=== PATIENT | male | born 1970 | race Hispanic/Latino ===

== ENCOUNTER 2017-05-16 14:43 | Emergency (ER) | payer SELFPAY ==
[2017-05-16 14:54] VITALS: BP 143/94
[2017-05-16 15:35] LABS: Hematocrit 48.6 % (35.5-45.6); Hemoglobin 15.9 gm/dl (11.8-15.2); Mean Corpuscular HGB Conc 33 % (32-34); Mean Corpuscular Hemoglobin 29 pg (28-32); Mean Corpuscular Volume 87 fl (84-94); Platelet Count 247 K/mm3 (140-440); Red Blood Count 5.57 M/mm3 (3.65-5.03); Red Cell Distribution Width 13.5 % (13.2-15.2)
[2017-05-16 15:38] LABS: BUN/Creatinine Ratio 11; Blood Urea Nitrogen 8 mg/dL (9-20); Hemolysis Index 37
--- NOTE | 2017-05-16 17:15 | XRay Report ---
FINAL REPORT EXAM: XR FOOT BILAT 2V HISTORY: foot pain bilaterally TECHNIQUE: AP, lateral, and oblique portable views of each foot PRIORS: None. FINDINGS: There is no evidence for acute fracture or dislocation. No soft tissue swelling or radiopaque foreign bodies are seen. Bony mineralization is normal. Joint spaces are maintained. Spurring off the plantar aspect of each calcaneus is seen. IMPRESSION: No acute soft tissue or bony abnormality noted.
== END 2017-05-16 20:20 | disposition left against medical advice (07) ==
LOC: ED 14:43
DX: Z53.21 Procedure and treatment not carried out due to patient leaving prior to being seen by health care provider (principal)
CPT/HCPCS: 36415; 73620; 80048; 82550; 82962; 83735; 85027; 93970; G0480; 80320

== ENCOUNTER 2018-12-27 18:04 | Emergency (ER) | payer SELFPAY ==
[2018-12-27] MEDS ORDERED: ASPIRIN PO ONE (18:28)
--- NOTE | 2018-12-27 18:55 | XRay Report ---
CHEST 1 VIEW 12/27/2018 6:33 PM INDICATION / CLINICAL INFORMATION: Chest Pain. COMPARISON: None available. FINDINGS: SUPPORT DEVICES: None. HEART / MEDIASTINUM: No significant abnormality. LUNGS / PLEURA: No significant pulmonary or pleural abnormality. No pneumothorax. ADDITIONAL FINDINGS: No significant additional findings. IMPRESSION: 1. No acute findings. Signer Name: Herman Brower MD Signed: 12/27/2018 6:51 PM Workstation Name: [id number]
[2018-12-27 19:05] LABS: BUN/Creatinine Ratio 9; Blood Urea Nitrogen 8 mg/dL (9-20); Calcium 8.2 mg/dL (8.4-10.2); Hemolysis Index 8
[2018-12-27 19:20] LABS: Basophils % (Auto) 0.5 % (0.0-1.8); Eosinophils # (Auto) 0.1 K/mm3 (0.0-0.4); Eosinophils % (Auto) 2.2 % (0.0-4.3); Hematocrit 44.1 % (35.5-45.6); Hemoglobin 14.9 gm/dl (11.8-15.2); Lymphocytes # (Auto) 2.6 K/mm3 (1.2-5.4); Lymphocytes % (Auto) 43.7 % (13.4-35.0); Mean Corpuscular HGB Conc 34 % (32-34); Mean Corpuscular Volume 90 fl (84-94); Monocytes # (Auto) 0.3 K/mm3 (0.0-0.8); Monocytes % (Auto) 5.2 % (0.0-7.3); Platelet Count 208 K/mm3 (140-440); Red Blood Count 4.89 M/mm3 (3.65-5.03); Red Cell Distribution Width 14.1 % (13.2-15.2)
--- NOTE | 2018-12-27 19:31 | Event Note ---
Date: 12/27/18 Medical screening examination: 48-year-old gentleman, initially presents with "cut me loose." On further questioning, he states as he was drinking earlier on today, and developed some chest discomfort. He states that it is chronic. He appears quite comfortable in his stretcher at this time. Screening laboratory studies ordered. ekg xr chest ordered Patient states he is pain-free at this time. Vital Signs 12/27/18 18:23 Temperature 97.6 F Pulse Rate 76 Respiratory 16 Rate Blood Pressure 133/78 O2 Sat by Pulse 98 Oximetry
[2018-12-27 20:24] VITALS: BP 113/72
--- NOTE | 2018-12-28 00:12 | Emergency Department Report ---
ED Chest Pain HPI - General Chief Complaint: Chest Pain Stated Complaint: CHEST PAIN Time Seen by Provider: 12/27/18 20:08 Source: EMS Mode of arrival: Stretcher Limitations: No Limitations - History of Present Illness Initial Comments: Mr. Sigala is a 48-year-old male with history of alcohol abuse presents with chest pain for several months. Chest pain is heavy left-sided. Has become more severe and persistent lately. Currently chest pain-free now. Family history of father with [place]. He does not have a primary care physician. Unknown if he has further cardiovascular risk factors such as hypertension and diabetes. He does have a history of tobacco abuse. Pain does not appear to be associated with breathing or exertion. Pain today occurred at rest. MD Complaint: chest pain -: Gradual, month(s) (several) Onset: during rest Pain Location: left chest Severity: mild Severity scale (0 -10): 0 Quality: heaviness Consistency: now resolved Improves With: nothing Worsens With: nothing Treatments Prior to Arrival: none - Related Data Previous Rx's Medication Instructions Recorded Last Taken Type Sulfamethoxazole/Trimethoprim 1 each PO BID #14 tablet 06/01/14 Unknown Rx [Bactrim Ds] cephALEXin [Keflex] 500 mg PO Q6H #28 capsule 06/01/14 Unknown Rx traMADol [Ultram] 50 mg PO Q6HR PRN #14 tablet 06/01/14 Unknown Rx Acetaminophen/Codeine [Tylenol #3] 1 tab PO Q6H PRN #12 tab 09/28/14 Unknown Rx Ibuprofen [Motrin 800 MG tab] 800 mg PO Q8H PRN #30 tablet 09/28/14 Unknown Rx Sulfamethoxazole/Trimethoprim 1 each PO Q12H #20 tablet 09/28/14 Unknown Rx [Bactrim Ds] cephALEXin [Keflex] 500 mg PO Q6H #40 capsule 09/28/14 Unknown Rx Allergies Allergy/AdvReac Type Severity Reaction Status Date / Time No Known Allergies Allergy Verified 05/16/17 14:46 Heart Score - HEART Score History: Slightly suspicious EKG: Non-specific Age: 45-65 Risk factors: 1-2 risk factors Troponin: < normal limit HEART Score: 3 ED Review of Systems ROS: Stated complaint: CHEST PAIN Other details as noted in HPI Comment: All other systems reviewed and negative Respiratory: denies: cough, shortness of breath Cardiovascular: chest pain ED Past Medical Hx - Past Medical History Previous Medical History?: Yes Hx Hypertension: Yes Hx Psychiatric Treatment: Yes (etoh abuse) Additional medical history: Irregular HR, Enlarged heart, hep c, etoh abuse pt states " On fridays i buy a 1/2 gallon of liquor and it last for the weekend" - Social History Smoking Status: Current Every Day Smoker Substance Use Type: Alcohol - Medications Home Medications: Home Medications Medication Instructions Recorded Confirmed Last Taken Type Sulfamethoxazole/Trimethoprim 1 each PO BID #14 tablet 06/01/14 Unknown Rx [Bactrim Ds] cephALEXin [Keflex] 500 mg PO Q6H #28 capsule 06/01/14 Unknown Rx traMADol [Ultram] 50 mg PO Q6HR PRN #14 tablet 06/01/14 Unknown Rx Acetaminophen/Codeine [Tylenol #3] 1 tab PO Q6H PRN #12 tab 09/28/14 Unknown Rx Ibuprofen [Motrin 800 MG tab] 800 mg PO Q8H PRN #30 tablet 09/28/14 Unknown Rx Sulfamethoxazole/Trimethoprim 1 each PO Q12H #20 tablet 09/28/14 Unknown Rx [Bactrim Ds] cephALEXin [Keflex] 500 mg PO Q6H #40 capsule 09/28/14 Unknown Rx ED Physical Exam - General Limitations: No Limitations General appearance: alert, in no apparent distress - Head Head exam: Present: atraumatic, normocephalic - Eye Eye exam: Present: normal appearance - ENT ENT exam: Present: mucous membranes moist - Neck Neck exam: Present: normal inspection, full ROM - Respiratory Respiratory exam: Present: normal lung sounds bilaterally. Absent: respiratory distress, wheezes, rales, rhonchi - Cardiovascular Cardiovascular Exam: Present: regular rate, normal rhythm, normal heart sounds. Absent: systolic murmur, diastolic murmur, rubs, gallop - GI/Abdominal GI/Abdominal exam: Present: soft, normal bowel sounds. Absent: distended, tenderness, guarding, rebound - Rectal Rectal exam: Present: deferred - Extremities Exam Extremities exam: Present: normal inspection - Back Exam Back exam: Present: normal inspection - Neurological Exam Neurological exam: Present: alert, oriented X3 - Psychiatric Psychiatric exam: Present: normal affect, normal mood - Skin Skin exam: Present: warm, dry, intact, normal color. Absent: rash ED Course Vital Signs 12/27/18 12/27/18 18:23 19:20 Temperature 97.6 F 97.9 F Pulse Rate 76 84 Respiratory 16 14 Rate Blood Pressure 133/78 Blood Pressure 113/72 [Right] O2 Sat by Pulse 98 97 Oximetry RAMON score - Ramon Score Age > 65: (0) No Aspirin use within the Past 7 Days: (0) No 3 or more CAD Risk Factors: (0) No 2 or more Angina events in past 24 hrs: (0) No Known CAD with more than 50% Stenosis: (0) No Elevated Cardiac Markers: (0) No ST Deviation Greater than 0.5mm: (0) No RAMON Score: 0 ED Medical Decision Making - Lab Data Result diagrams: 12/27/18 18:35 12/27/18 18:35 Laboratory Results - last 24 hr 12/27/18 12/27/18 18:35 18:35 WBC 6.1 RBC 4.89 Hgb 14.9 Hct 44.1 MCV 90 MCH 30 MCHC 34 RDW 14.1 Plt Count 208 Lymph % (Auto) 43.7 H [place] % (Auto) 5.2 Eos % (Auto) 2.2 Baso % (Auto) 0.5 Lymph # 2.6 [place] # 0.3 Eos # 0.1 Baso # 0.0 Seg Neutrophils % 48.4 Seg Neutrophils # 2.9 Sodium 142 Potassium 3.8 Chloride 102.1 Carbon Dioxide 22 Anion Gap 22 BUN 8 L Creatinine 0.9 Estimated GFR > 60 BUN/Creatinine Ratio 9 Glucose 101 H Calcium 8.2 L Troponin T < 0.010 - Radiology Data Radiology results: report reviewed AP portable chest no acute process - Medical Decision Making Mr. Sigala is a 48-year-old gentleman who presents with recurrent intermittent chest pain over several months. Heart score is 3. With shared decision-making including his daughter in our conversation, Mr. Sigala decided to have outpatient cardiology evaluation as opposed to inpatient admission which was offered to him. He understood that I am concerned for cardiac cause such as coronary disease leading to angina. No indication of pulmonary embolism, esophageal rupture, pneumothorax, aortic dissection on today's presentation. He is currently chest pain-free. I felt that outpatient cardiology evaluation is appropriate. I have arranged for outpatient referral with our cardiology group. He also was given name of a senior solutions workflow consultant. His daughter reassured me that he will follow up cardiology this week. Mr. Sigala and his daughter both verbalized understand that there is a present although small risk of cardiac event if he does not pursue urgent cardiology evaluation. I recommended tobacco cessation. Critical care attestation.: If time is entered above; I have spent that time in minutes in the direct care of this critically ill patient, excluding procedure time. ED Disposition Clinical Impression: Chest pain Disposition: DC-01 TO HOME OR SELFCARE Is pt being admited?: No Does the pt Need Aspirin: No Condition: Stable Instructions: Chest Pain (ED) Referrals: SAIRA LAWSON MD [Staff Physician] - [facility] Forms: Work/School Release Form(ED)
== END 2018-12-27 20:29 | disposition home or self-care (01) ==
LOC: ED 18:04
DX: R07.89 Other chest pain (principal); I10 Essential (primary) hypertension; F17.200 Nicotine dependence, unspecified, uncomplicated; Z79.899 Other long term (current) drug therapy
CPT/HCPCS: 36415; 71045; 80048; 84484; 85025; 93005; 93010

== ENCOUNTER 2019-04-11 07:54 | Emergency (ER) | payer OTHER ==
[2019-04-11 08:02] VITALS: BP 183/104
[2019-04-11] MEDS ORDERED: KETOROLAC 60 MG/2 ML INJ IM ONE (08:22)
[2019-04-11] MEDS ORDERED: ONDANSETRON 4 MG ODT TAB PO ONE (08:22)
--- NOTE | 2019-04-11 08:59 | Cat Scan Report ---
. CT ABDOMEN AND PELVIS WITHOUT CONTRAST HISTORY: right flank pain. COMPARISON: None. TECHNIQUE: CT images of the abdomen and pelvis were obtained without administration of intravenous co ntrast. All CT scans at this location are performed using CT dose reduction for ALARA by means of au tomated exposure control. FINDINGS: Lungs/bones: The lung bases are clear. There are degenerative changes in the spine and pelvis with n o acute osseous abnormality. Left hip osteonecrosis is also present involving approximately 50% of th e articular surface. No collapse or significant secondary DJD. Abdomen/pelvis: There is a 3 mm stone in the distal right ureter with mild left-sided hydronephrosis , periureteral stranding, and perinephric stranding. An additional nonobstructive calyceal stone is s een in the mid to upper pole measuring 3 mm. The kidneys otherwise appear unremarkable. There is mild hepatic steatosis. The liver is otherwise unremarkable. The gallbladder, spleen, pancre as, adrenals, and proximal GI tract appear unremarkable. Urinary bladder and prostate are unremarkable with no pelvic free fluid. There is mild colonic divert iculosis with no acute inflammatory change identified. The terminal ileum and appendix are normal. IMPRESSION: 1. 3 mm stone in the distal right ureter with mild hydronephrosis. 2. Additional incidental findings as above. Signer Name: Jamie Finn MD Signed: 04/11/2019 8:55 AM Workstation Name: [id number]
[2019-04-11 09:01] LABS: Basophils % (Auto) 0.8 % (0.0-1.8); Eosinophils # (Auto) 0.1 K/mm3 (0.0-0.4); Eosinophils % (Auto) 1.8 % (0.0-4.3); Hematocrit 44.6 % (35.5-45.6); Lymphocytes # (Auto) 1.8 K/mm3 (1.2-5.4); Mean Corpuscular HGB Conc 34 % (32-34); Mean Corpuscular Volume 89 fl (84-94); Monocytes # (Auto) 0.5 K/mm3 (0.0-0.8); Monocytes % (Auto) 10.3 % (0.0-7.3); Platelet Count 194 K/mm3 (140-440); Red Blood Count 4.99 M/mm3 (3.65-5.03)
[2019-04-11 09:09] LABS: BUN/Creatinine Ratio 11; Blood Urea Nitrogen 8 mg/dL (9-20); Hemolysis Index 19
[2019-04-11 09:16] LABS: Bilirubin,Urine NEG (Negative); Blood,Urine LG (Negative); Calcium Oxalate Crystals,Urine 2+; Color,Urine Amber (Yellow); Mucus,Urine 2+ /HPF
[2019-04-11 09:18] LABS: RBC,Urine > 182.0 /HPF (0.0-6.0)
--- NOTE | 2019-04-11 09:45 | Emergency Department Report ---
ED General Adult HPI - General Chief complaint: Back Pain/Injury Stated complaint: BACK/TESTICLE PAIN Time Seen by Provider: 04/11/19 08:18 Source: patient Mode of arrival: Ambulatory Limitations: No Limitations - History of Present Illness Initial comments: Patient is a 48-year-old male with a past medical history of hypertension EtOH abuse and remote history of kidney stones who is presenting with right flank pain. Patient states that the pain started yesterday afternoon. Pain is worse with 10 out of 10 but is 5 out of 10 in severity at this moment. Patient states is a stabbing pain is in the right flank that does radiate into his right groin. Patient states there is no pain with palpation of his testicles or swelling. Patient denies hematuria or dysuria or penile discharge. Patient states he has some mild nausea but no vomiting. Patient denies fevers chills. Severity scale (0 -10): 5 - Related Data Previous Rx's Medication Instructions Recorded Last Taken Type Sulfamethoxazole/Trimethoprim 1 each PO BID #14 tablet 06/01/14 Unknown Rx [Bactrim Ds] cephALEXin [Keflex] 500 mg PO Q6H #28 capsule 06/01/14 Unknown Rx traMADoL [Ultram] 50 mg PO Q6HR PRN #14 tablet 06/01/14 Unknown Rx Acetaminophen/Codeine [Tylenol #3] 1 tab PO Q6H PRN #12 tab 09/28/14 Unknown Rx Ibuprofen [Motrin 800 MG tab] 800 mg PO Q8H PRN #30 tablet 09/28/14 Unknown Rx Sulfamethoxazole/Trimethoprim 1 each PO Q12H #20 tablet 09/28/14 Unknown Rx [Bactrim Ds] cephALEXin [Keflex] 500 mg PO Q6H #40 capsule 09/28/14 Unknown Rx Ciprofloxacin HCl [Ciprofloxacin 500 mg PO Q12HR #14 tab 04/11/19 Unknown Rx TAB] Ibuprofen [Motrin 800 MG tab] 800 mg PO Q8HR PRN #10 tablet 04/11/19 Unknown Rx Ondansetron [Zofran Odt] 4 mg PO Q8HR #10 tab.rapdis 04/11/19 Unknown Rx Tamsulosin [Flomax] 0.4 mg PO QDAY #7 cap 04/11/19 Unknown Rx traMADoL [Ultram] 50 mg PO Q6HR PRN #12 tablet 04/11/19 Unknown Rx Allergies Allergy/AdvReac Type Severity Reaction Status Date / Time No Known Allergies Allergy Verified 05/16/17 14:46 ED Review of Systems ROS: Stated complaint: BACK/TESTICLE PAIN Other details as noted in HPI Comment: All other systems reviewed and negative ED Past Medical Hx - Past Medical History Previous Medical History?: Yes Hx Hypertension: Yes Hx Psychiatric Treatment: Yes (etoh abuse) Additional medical history: Irregular HR, Enlarged heart, hep c, etoh abuse pt states " On fridays i buy a 1/2 gallon of liquor and it last for the weekend" - Social History Smoking Status: Current Every Day Smoker Substance Use Type: Alcohol, Marijuana - Medications Home Medications: Home Medications Medication Instructions Recorded Confirmed Last Taken Type Sulfamethoxazole/Trimethoprim 1 each PO BID #14 tablet 06/01/14 Unknown Rx [Bactrim Ds] cephALEXin [Keflex] 500 mg PO Q6H #28 capsule 06/01/14 Unknown Rx traMADoL [Ultram] 50 mg PO Q6HR PRN #14 tablet 06/01/14 Unknown Rx Acetaminophen/Codeine [Tylenol #3] 1 tab PO Q6H PRN #12 tab 09/28/14 Unknown Rx Ibuprofen [Motrin 800 MG tab] 800 mg PO Q8H PRN #30 tablet 09/28/14 Unknown Rx Sulfamethoxazole/Trimethoprim 1 each PO Q12H #20 tablet 09/28/14 Unknown Rx [Bactrim Ds] cephALEXin [Keflex] 500 mg PO Q6H #40 capsule 09/28/14 Unknown Rx Ciprofloxacin HCl [Ciprofloxacin 500 mg PO Q12HR #14 tab 04/11/19 Unknown Rx TAB] Ibuprofen [Motrin 800 MG tab] 800 mg PO Q8HR PRN #10 tablet 04/11/19 Unknown Rx Ondansetron [Zofran Odt] 4 mg PO Q8HR #10 tab.rapdis 04/11/19 Unknown Rx Tamsulosin [Flomax] 0.4 mg PO QDAY #7 cap 04/11/19 Unknown Rx traMADoL [Ultram] 50 mg PO Q6HR PRN #12 tablet 04/11/19 Unknown Rx ED Physical Exam - General Limitations: No Limitations General appearance: alert, in no apparent distress - Head Head exam: Present: atraumatic, normocephalic - Eye Eye exam: Present: normal appearance - ENT ENT exam: Present: mucous membranes moist - Neck Neck exam: Present: normal inspection - Respiratory Respiratory exam: Present: normal lung sounds bilaterally. Absent: respiratory distress, wheezes, rales, rhonchi, stridor - Cardiovascular Cardiovascular Exam: Present: regular rate, normal rhythm, normal heart sounds. Absent: systolic murmur, diastolic murmur, rubs, gallop - GI/Abdominal GI/Abdominal exam: Present: soft, normal bowel sounds. Absent: distended, tenderness, guarding, rebound - Rectal Rectal exam: Present: deferred - Extremities Exam Extremities exam: Present: normal inspection - Back Exam Back exam: Present: normal inspection, CVA tenderness (R) - Neurological Exam Neurological exam: Present: alert, oriented X3 - Psychiatric Psychiatric exam: Present: normal affect, normal mood - Skin Skin exam: Present: warm, dry, intact, normal color. Absent: rash ED Course Vital Signs 04/11/19 08:00 Temperature 97.7 F Pulse Rate 92 H Respiratory 20 Rate Blood Pressure 183/104 O2 Sat by Pulse 97 Oximetry ED Medical Decision Making - Lab Data Result diagrams: 04/11/19 08:41 04/11/19 08:41 - Radiology Data CT ABDOMEN AND PELVIS WITHOUT CONTRAST HISTORY: right flank pain. COMPARISON: None. TECHNIQUE: CT images of the abdomen and pelvis were obtained without administ ration of intravenous contrast. All CT scans at this location are performed using CT dose reduction for ALARA by means of automated exposure control. FINDINGS: Lungs/bones: The lung bases are clear. There are degenerative changes in the spine and pelvis with no acute osseous abnormality. Left hip osteonecrosis is also present involving approximately 50% of the articular surface. No collapse or significant secondary DJD. Abdomen/pelvis: There is a 3 mm stone in the distal right ureter with mild left- sided hydronephrosis, periureteral stranding, and perinephric stranding. An additional nonobstructive calyceal stone is seen in the mid to upper pole measuring 3 mm. The kidneys otherwise appear unremarkable. There is mild hepatic steatosis. The liver is otherwise unremarkable. The gallbladder, spleen, pancreas, adrenals, and proximal GI tract appear unremarkable. Urinary bladder and prostate are unremarkable with no pelvic free fluid. There is mild colonic diverticulosis with no acute inflammatory change identified. The terminal ileum and appendix are normal. IMPRESSION: 1. 3 mm stone in the distal right ureter with mild hydronephrosis. 2. Additional incidental findings as above. - Medical Decision Making Patient was given Toradol and Zofran to control his symptoms. CT does confirm that the patient has a right obstructive uropathy in the distal ureter. There is mild hydronephrosis. Patient will be discharged home with pain medications as well as follow-up with urology. Critical care attestation.: If time is entered above; I have spent that time in minutes in the direct care of this critically ill patient, excluding procedure time. ED Disposition Clinical Impression: Hydronephrosis Qualifiers: Hydronephrosis type: with ureteral calculous obstruction Qualified Code(s): N13.2 - Hydronephrosis with renal and ureteral calculous obstruction Disposition: TO HOME OR SELFCARE Is pt being admited?: No Does the pt Need Aspirin: No Condition: Stable Instructions: Kidney Stones (ED), How to Strain Your Urine (ED) Referrals: BONILLA BRENNAN MD [Staff Physician] - 3-5 Days Time of Disposition: 09:44
== END 2019-04-11 09:55 | disposition home or self-care (01) ==
LOC: ED 07:54
DX: N13.2 Hydronephrosis with renal and ureteral calculous obstruction (principal); I10 Essential (primary) hypertension; F17.200 Nicotine dependence, unspecified, uncomplicated; F12.10 Cannabis abuse, uncomplicated
CPT/HCPCS: 36415; 74176; 80048; 81001; 85025; 87086; 96372; 99284; J1885; Q0162

== ENCOUNTER 2020-03-07 14:53 | Emergency (ER) | payer OTHER ==
--- NOTE | 2020-03-07 16:13 | Emergency Department Report ---
ED General Adult HPI - General Chief complaint: Syncope Stated complaint: SYNCOPE PUI?: No Time Seen by Provider: 03/07/20 15:42 Source: patient, EMS ( EMS documentation not available at time of chart dictation ), RN notes reviewed, old records reviewed Mode of arrival: Stretcher Limitations: No Limitations - History of Present Illness Initial comments: The patient was evaluated in the emergency department for symptoms described in the history of present illness. He/she was evaluated in the context of the global COVID-19 pandemic, which necessitated consideration that the patient might be at risk for infection with the virus that causes COVID-19. Institutional protocols and algorithms that pertain to the evaluation of patients at risk for COVID-19 are in a state of rapid change based on information released by regulatory bodies including the CDC and federal and state organizations. These policies and algorithms were followed during the patient's care in the emergency department. Please note that these policies, procedures and recommendations changed on a rapid basis. This patient is a 49-year-old obese gentleman. He is not known to myself previously. He has a primary care doctor, but he cannot recall their name. He has a history of morbid obesity, diabetes and hypertension, as well as chronic alcohol consumption. Patient presents today with a primary complaint of temporary loss of consciousness while sitting down. He states that over the past week, he has had nonspecific malaise, and intermittent retching. He denies loss of taste and smell. He denies fever. He has a chronic cough. He denies travel, surgery, oral contraceptive use, leg pain and leg swelling. He is not been exposed to Covid that he is aware of. He had a Covid test recently, he is not quite sure of the results. He states today, he was feeling his usual state of health, when he walked over to the couch, and sat down. He then states that the next thing he remembered, his was waking him up. On review of systems, patient reports daytime sleepiness, a sensation of choking and not breathing well while he sleeps, vivid dreams, restless legs, and somnolence when he sits down to watch TV or center front of a computer. His reportedly states that he snores quite a bit at night. The patient has not had a formal sleep study that he is aware of. He does not have a diagnosis of sleep apnea that he is aware of. The patient does endorse frequent alcohol use. He does not have a sensation of feeling jittery, and he also reports no homicidality or suicidality, and he is not have withdrawal that he is aware of -: Sudden Consistency: now resolved Improves with: none Worsens with: none - Related Data Previous Rx's Medication Instructions Recorded Last Taken Type Amlodipine Besylate [Norvasc] 5 mg PO QDAY #30 tablet 03/07/20 Unknown Rx Multivitamin with Folic Acid [[facility] 400 mcg PO QDAY #30 tablet 03/07/20 Unknown Rx One Daily Essential Tablet] Allergies Allergy/AdvReac Type Severity Reaction Status Date / Time No Known Allergies Allergy Verified 05/16/17 14:46 ED Review of Systems ROS: Stated complaint: SYNCOPE Other details as noted in HPI Constitutional: malaise. denies: fever Eyes: denies: eye discharge ENT: denies: congestion Respiratory: cough Cardiovascular: syncope. denies: chest pain Gastrointestinal: denies: abdominal pain, nausea, vomiting, hematemesis, melena, hematochezia Genitourinary: denies: dysuria Musculoskeletal: denies: back pain Neurological: weakness. denies: numbness, paresthesias, abnormal gait, vertigo Psychiatric: denies: homicidal thoughts, suicidal thoughts Hematological/Lymphatic: denies: easy bleeding ED Past Medical Hx - Past Medical History Hx Hypertension: Yes Hx Diabetes: Yes Hx Psychiatric Treatment: Yes (etoh abuse) Additional medical history: Irregular HR, Enlarged heart, hep c, etoh abuse pt states " On fridays i buy a 1/2 gallon of liquor and it last for the weekend" - Social History Smoking Status: Current Every Day Smoker Substance Use Type: Alcohol - Medications Home Medications: Home Medications Medication Instructions Recorded Confirmed Last Taken Type Amlodipine Besylate [Norvasc] 5 mg PO QDAY #30 tablet 03/07/20 Unknown Rx Multivitamin with Folic Acid [[facility] 400 mcg PO QDAY #30 tablet 03/07/20 Unknown Rx One Daily Essential Tablet] ED Physical Exam - General Limitations: No Limitations General appearance: alert, anxious, obese - Head Head exam: Present: atraumatic, normocephalic - Eye Eye exam: Present: normal appearance, EOMI. Absent: nystagmus - ENT ENT exam: Present: normal exam, normal orophraynx, mucous membranes moist, normal external ear exam - Neck Neck exam: Present: normal inspection, full ROM. Absent: tenderness, meningismus - Respiratory Respiratory exam: Present: normal lung sounds bilaterally. Absent: respiratory distress, wheezes, rales, rhonchi, stridor, accessory muscle use, decreased breath sounds - Cardiovascular Cardiovascular Exam: Present: regular rate, normal rhythm, normal heart sounds. Absent: bradycardia, tachycardia, irregular rhythm, systolic murmur, diastolic murmur, rubs, gallop - GI/Abdominal GI/Abdominal exam: Present: soft. Absent: distended, tenderness, guarding, rebound, rigid, pulsatile mass - Rectal Rectal exam: Present: deferred - Extremities Exam Extremities exam: Present: normal inspection, full ROM, pedal edema (1+ edema in the bilateral lower extremity), other (2+ pulses noted in the bilateral upper and lower extremities. There is no palpable cord. negative Homans sign. Muscular compartments are soft. The pelvis is stable.). Absent: calf tenderness - Back Exam Back exam: Present: normal inspection, full ROM. Absent: tenderness, CVA tenderness (R), CVA tenderness (L), paraspinal tenderness, vertebral tenderness - Neurological Exam Neurological exam: Present: alert (There is no past-pointing. There is normal [id number]), oriented X3, other (No facial droop. Tongue midline. Extraocular movements intact bilaterally. Facial sensation intact to light touch in V1, V2, V3 distribution bilaterally. 5 and a 5 strength in 4 extremities. Sensation intact to light touch in 4 extremities.). Absent: motor sensory deficit - Psychiatric Psychiatric exam: Present: anxious. Absent: homicidal ideation, suicidal ideation - Skin Skin exam: Present: warm, dry, intact, normal color. Absent: rash ED Course Vital Signs 03/07/20 03/07/20 03/07/20 15:32 15:45 16:30 Temperature 98.2 F Pulse Rate 110 H 97 H Respiratory 20 18 Rate Blood Pressure 179/109 173/95 165/105 O2 Sat by Pulse 98 92 97 Oximetry 03/07/20 18:25 Temperature Pulse Rate Respiratory Rate Blood Pressure 181/99 O2 Sat by Pulse 96 Oximetry - Reevaluation(s) Reevaluation #1: 03/07/20 16:44 Differential diagnosis, include but not limited to: Obstructive sleep apnea, pulmonary hypertension, electrolyte derangement, narcolepsy, pneumonia, intracranial lesion Assessment and plan: 49-year-old gentleman, with resolved tachycardia, not currently tachycardic, tachypneic or hypoxic, with no pulmonary embolism or DVT risk factors, low risk by Wells criteria, GCS 15, NIH score of 0, with probable obstructive sleep apnea, and pulmonary hypertension. Check basic laboratory studies, EKG x2, troponin x2, CT scan of the brain, x-ray of the chest, place patient on property assessment monitor, and reassess. I had extensive discussion with the patient regarding need to lose weight, diet, discontinue alcohol consumption, and follow-up with an outpatient primary care doctor or sleep specialist for definitive sleep study testing. The patient is amenable to this plan of care. Reevaluation #2: 03/07/20 17:08 Patient able to ambulate with a steady gait. He remains clinically sober, and his laboratory studies are unremarkable, with the exception of elevated blood alcohol level. Repeat EKG, repeat troponin, noncontrast CT scan of the brain is pending Reevaluation #3: 03/07/20 18:[address] scan of the brain is negative for acute disease. X-ray of the chest is negative. Troponin is negative x2. Patient observed in this department for approximately 4 hours, without evidence of hemodynamic instabilit y or arrhythmia, or syncope. He indicates his can come by and pick him up. He is reliable to follow-up with outpatient primary care, and/or cardiology, And/or sleep medicine. ED Medical Decision Making - Lab Data Result diagrams: 03/07/20 16:18 03/07/20 16:18 Vital Signs 03/07/20 03/07/20 15:32 15:45 Temperature 98.2 F Pulse Rate 110 H 97 H Respiratory 20 18 Rate Blood Pressure 179/109 173/95 O2 Sat by Pulse 98 92 Oximetry Lab Results 03/07/20 Range/Units 16:18 Hgb 15.6 H (11.8-15.2) gm/dl Hct 47.6 H (35.5-45.6) % Plt Count 140 (140-440) K/mm3 Lab Results 03/07/20 03/07/20 03/07/20 Range/Units 16:18 16:18 16:18 Hgb 15.6 H (11.8-15.2) gm/dl Hct 47.6 H (35.5-45.6) % Plt Count 140 (140-440) K/mm3 PT 13.4 (12.2-14.9) Sec. INR 1.00 (0.87-1.13) Sodium 137 (137-145) mmol/L Potassium 3.5 L (3.6-5.0) mmol/L Chloride 97.4 L (98-107) mmol/L Carbon Dioxide 23 (22-30) mmol/L Anion Gap 20 mmol/L BUN 3 L (9-20) mg/dL Creatinine 0.8 (0.8-1.3) mg/dL Estimated GFR > 60 ml/min BUN/Creatinine Ratio 4 % Glucose 169 H (75-100) mg/dL Calcium 9.3 (8.4-10.2) mg/dL Magnesium 2.00 (1.7-2.3) mg/dL Total Bilirubin 0.80 (0.1-1.2) mg/dL AST 171 H (5-40) units/L ALT 88 H (7-56) units/L Alkaline Phosphatase 104 (35-129) units/L Total Creatine Kinase (55-170) units/L Troponin T < 0.010 (0.00-0.029) ng/mL Total Protein 7.3 (6.3-8.2) g/dL Albumin 4.4 (3.9-5) g/dL Albumin/Globulin Ratio 1.5 % TSH (0.270-4.200) mlU/mL Salicylates (2.8-20.0) mg/dL Acetaminophen (10.0-30.0) ug/mL Plasma/Serum Alcohol (0-0.07) % 03/07/20 03/07/20 03/07/20 Range/Units 16:18 16:18 16:18 Hgb (11.8-15.2) gm/dl Hct (35.5-45.6) % Plt Count (140-440) K/mm3 PT (12.2-14.9) Sec. INR (0.87-1.13) Sodium (137-145) mmol/L Potassium (3.6-5.0) mmol/L Chloride (98-107) mmol/L Carbon Dioxide (22-30) mmol/L Anion Gap mmol/L BUN (9-20) mg/dL Creatinine (0.8-1.3) mg/dL Estimated GFR ml/min BUN/Creatinine Ratio % Glucose (75-100) mg/dL Calcium (8.4-10.2) mg/dL Magnesium 1.90 (1.7-2.3) mg/dL Total Bilirubin (0.1-1.2) mg/dL AST (5-40) units/L ALT (7-56) units/L Alkaline Phosphatase (35-129) units/L Total Creatine Kinase 198 H (55-170) units/L Troponin T (0.00-0.029) ng/mL Total Protein (6.3-8.2) g/dL Albumin (3.9-5) g/dL Albumin/Globulin Ratio % TSH 1.020 (0.270-4.200) mlU/mL Salicylates < 0.3 L (2.8-20.0) mg/dL Acetaminophen (10.0-30.0) ug/mL Plasma/Serum Alcohol (0-0.07) % 03/07/20 03/07/20 Range/Units 16:18 16:18 Hgb (11.8-15.2) gm/dl Hct (35.5-45.6) % Plt Count (140-440) K/mm3 PT (12.2-14.9) Sec. INR (0.87-1.13) Sodium (137-145) mmol/L Potassium (3.6-5.0) mmol/L Chloride (98-107) mmol/L Carbon Dioxide (22-30) mmol/L Anion Gap mmol/L BUN (9-20) mg/dL Creatinine (0.8-1.3) mg/dL Estimated GFR ml/min BUN/Creatinine Ratio % Glucose (75-100) mg/dL Calcium (8.4-10.2) mg/dL Magnesium (1.7-2.3) mg/dL Total Bilirubin (0.1-1.2) mg/dL AST (5-40) units/L ALT (7-56) units/L Alkaline Phosphatase (35-129) units/L Total Creatine Kinase (55-170) units/L Troponin T (0.00-0.029) ng/mL Total Protein (6.3-8.2) g/dL Albumin (3.9-5) g/dL Albumin/Globulin Ratio % TSH (0.270-4.200) mlU/mL Salicylates (2.8-20.0) mg/dL Acetaminophen 5.0 L (10.0-30.0) ug/mL Plasma/Serum Alcohol 0.24 H (0-0.07) % - EKG Data -: EKG Interpreted by Me EKG shows normal: sinus rhythm Rate: normal - EKG Data When compared to previous EKG there are: previous EKG unavailable 03/07/20 16:43 Sinus rhythm, 92 bpm, normal axis, QTC 445 ms, poor R wave progression. Abnormal EKG. Not a STEMI. Unchanged from prior EKG from December 2018. - Radiology Data Radiology results: pending Critical care attestation.: If time is entered above; I have spent that time in minutes in the direct care of this critically ill patient, excluding procedure time. ED Disposition Clinical Impression: Alcohol dependence, History of syncope, Obesity, Sleep disturbance, unspecified, Elevated blood pressure reading Disposition: - TO HOME OR SELFCARE Is pt being admited?: No Does the pt Need Aspirin: No Condition: Stable Additional Instructions: We recommend the patient not drive or operate motor vehicles for the next 6 months, or until cleared to do so by her primary care doctor, or collision mechanic. Recommend that the patient minimize/abstain from consumption of alcohol. Recommend aggressive weight loss, and physical activities as tolerated. Patient most likely has obstructive sleep apnea. Recommend weight loss, and follow-up with an outpatient pastrycook's assistant/sleep specialist, such as Dr. Patel, within the next month, for dedicated sleep testing. Recommend follow-up with an outpatient primary care doctor or collision mechanic, within the next week, for further outpatient evaluation of elevated blood pressure, and loss of consciousness. Primary care doctors include the following: Dr Sari Bonner Cardiology includes Dr. Vyas Take the multivitamin as directed. Please return to the emergency room right away with new pain, worsened pain, migration of pain, projectile vomiting, change in mental status, confusion, inability to tolerate liquid feeds, new, worsened or different symptoms not present on the initial emergency room evaluation. Prescriptions: Multivitamin with Folic Acid [[facility] One Daily Essential Tablet] 400 mcg PO QDAY #30 tablet Amlodipine Besylate [Norvasc] 5 mg PO QDAY #30 tablet Referrals: MIGDALIA BONNER MD [Staff Physician] - 3-5 Days MARILYN PATEL MD [Staff Physician] - 3-5 Days TERELL VYAS MD [Staff Physician] - 3-5 Days
[2020-03-07 16:37] LABS: Hematocrit 47.6 % (35.5-45.6); Hemoglobin 15.6 gm/dl (11.8-15.2)
[2020-03-07 16:55] LABS: Alanine Aminotransferase 88 units/L (7-56); Albumin 4.4 g/dL (3.9-5); BUN/Creatinine Ratio 4; Blood Urea Nitrogen 3 mg/dL (9-20); Calcium 9.3 mg/dL (8.4-10.2); Hemolysis Index 6
--- NOTE | 2020-03-07 18:06 | Cat Scan Report ---
CT head/brain wo con INDICATION / CLINICAL INFORMATION: 49 years Male; Syncope. TECHNIQUE: Routine CT head without contrast. All CT scans at this location are performed using CT dos e reduction for ALARA by means of automated exposure control. COMPARISON: None. FINDINGS: BRAIN / INTRACRANIAL CONTENTS: The brain appears to demonstrate appropriate attenuation. The ventricu lar system is within normal limits in size and configuration. There is no clear CT evidence of acute intracranial hemorrhage or significant mass effect. ORBITS: No significant abnormality of visualized orbits. SINUSES / MASTOIDS: There is minimal mucosal thickening along the inferior left maxillary sinus. CRANIOCERVICAL JUNCTION: No significant abnormality. ADDITIONAL FINDINGS: None. IMPRESSION: 1. There is no CT evidence of acute intracranial process. Signer Name: Avery Gandhi MD Signed: 03/07/2020 6:02 PM Workstation Name: [id number]
[2020-03-07 18:26] VITALS: BP 181/99
--- NOTE | 2020-03-07 18:44 | XRay Report ---
CHEST 2 VIEWS INDICATION / CLINICAL INFORMATION: Cough, syncope. COMPARISON: None available. FINDINGS: SUPPORT DEVICES: None. HEART / MEDIASTINUM: No significant abnormality. LUNGS / PLEURA: No significant pulmonary or pleural abnormality. No pneumothorax. ADDITIONAL FINDINGS: No significant additional findings. IMPRESSION: 1. No acute findings. Signer Name: Herman Brower MD Signed: 03/07/2020 6:40 PM Workstation Name: [id number]
== END 2020-03-07 20:23 | disposition home or self-care (01) ==
LOC: ED 14:53
DX: F10.20 Alcohol dependence, uncomplicated (principal); R55 Syncope and collapse; G47.9 Sleep disorder, unspecified; E66.9 Obesity, unspecified; I10 Essential (primary) hypertension; E11.9 Type 2 diabetes mellitus without complications; F17.200 Nicotine dependence, unspecified, uncomplicated; Z68.39 Body mass index [BMI] 39.0-39.9, adult; Z79.899 Other long term (current) drug therapy
CPT/HCPCS: 36415; 70450; 71046; 80053; 80320; 82550; 83735; 84443; 84484; 85014; 85018; 85049; 85610; 93005; G0480